=== PATIENT | female | born 1990 | race Caucasian/White ===

== ENCOUNTER 2024-06-12 20:11 | Emergency (ER) | payer OTHER, SELFPAY ==
[2024-06-12 20:11] VITALS: BP 106/77
[2024-06-12 20:29] LABS: % Basophils 0.6 % (0-2); % Eosinophils 2.3 % (0-6); % Immature Granulocytes 0.2 % (0-0.5); % Lymphocytes 31.9 % (20.5-51.1); % Monocytes 10.6 % (1.7-9.3); % Neutrophils 54.4 % (42.2-75.2); Absolute Eosinophils 0.1 10^3/uL (0-0.7); Absolute Lymphocytes 1.7 10^3/uL (1.2-3.4); Absolute Monocytes 0.6 10^3/uL (0.1-0.6); Absolute Neutrophils 2.9 10^3/uL (1.4-6.5); Hemoglobin 14.1 g/dL (12.0-16.0); Mean Corp Hgb Conc. 35.3 g/dL (33.0-37.0); Mean Corpuscular Hgb 31.1 pg (27.0-31.0); Mean Corpuscular Volume 88.3 fL (81.0-99.0); Mean Platelet Volume 9.2 fL (7.4-10.4); Nucleated Red Blood Cells % 0 %; Platelet Count 245 10^3/uL (130-400); Red Blood Cell Count 4.53 10^6/uL (4.20-5.40); Red Cell Dist. Width 12.2 % (11.5-14.5); White Blood Cell Count 5.3 10^3/uL (4.8-10.8)
[2024-06-12 20:35] LABS: HCG, Serum Qualitative Screen Negative
[2024-06-12 20:46] LABS: ALT (SGPT) 32 U/L (0-35); AST (SGOT) 27 U/L (14-36); Albumin 4.4 g/dl (3.5-5.0); Alkaline Phosphatase 71 U/L (38-126); Blood Urea Nitrogen 12 mg/dl (7-17); Carbon Dioxide 28 mmol/L (22-30); Chloride 100 mmol/L (98-107); Glucose 99 mg/dl (70-99); Potassium 3.9 mmol/L (3.5-5.1); Sodium 137 mmol/L (135-145); Total Bilirubin 0.7 mg/dl (0.2-1.3); Total Protein 7.2 g/dl (6.3-8.2); eGFR > 60.00
[2024-06-12 20:47] LABS: Lipase 121 U/L (23-300)
[2024-06-12 21:02] VITALS: BP 122/79
[2024-06-12 21:13] VITALS: BMI 27.3
--- NOTE | 2024-06-12 21:34 | ED.GENMED ---
History of Present Illness
<MARIA M Guillory - Last Filed: 06/13/24 00:11>
General
Chief Complaint: Abdominal Pain
Source: patient
Exam Limitations: none
Time Seen by Provider: 06/12/24 21:25
History of Present Illness
History of Present Illness:
This is a 34 year old female that comes in with c/o abd pain. States that this started on Tuesday. Yesterday and today she felt that the pain was getting worse. States that when she eats it increase the pain. States that it is all across the lower
abd. States that she took Ibuprofen at 12 noon but nothing since then. Denies any fever, chills, chest pain, SOB, nausea, vomiting, diarrhea, headache, dizziness, urinary burning
Past History
<MARIA M Guillory - Last Filed: 06/13/24 00:11>
Past History
ED Past Medical History: None
ED Past Surgical History: None
Social History
Tobacco: Non-smoker
Alcohol: Occasional
Personal: Single
Living: with family
Employment: Not employed
Family History
Family History: Other (Noncontributory)
Review of Systems
<MARIA M Guillory - Last Filed: 06/13/24 00:11>
Review of Systems
All Other Systems: ROS reviewed and negative except as documented in HPI and ROS
Constitutional: Reports no symptoms; Denies fever or chills
EENT: Reports no symptoms
Respiratory: Reports no symptoms; Denies cough or trouble breathing
Cardiac: Reports no symptoms; Denies chest pain
ABD/GI: Reports abdominal pain; Denies nausea, vomiting or diarrhea
: Reports no symptoms; Denies dysuria, frequency or urgency
Musculoskeletal: Reports no symptoms
Skin: Reports no symptoms
Neurological: Reports no symptoms; Denies dizzy or headache
Psychiatric: Reports no symptoms
Phy Exam
<MARIA M Guillory - Last Filed: 06/13/24 00:11>
General Physical Exam
General Presentation: well appearing and no apparent distress
General age: appears stated age
General Skin: warm and dry
General Habitus: normal
General Mental: alert
General Hydration: appears well hydrated
ENT Exam
ENT Exam: TM's normal, pharynx normal and neck supple
Eye Exam
Eye Exam: EOMI
Cardiovascular Exam
Cardiovascular Exam: regular rate/rhythm, no edema, no murmur and normal peripheral pulses
Pulmonary Exam
Pulmonary Exam: lungs clear, no respiratory distress, no rales, chest non tender, no crackles, no rhonchi, no wheezing and no cough
Gastrointestinal Exam
Gastrointestinal Exam: soft, no organomegaly, no pulsatile mass, non distended and tender (Lower abd tenderness with palpation, Hypoactive bowel sounds)
Musculoskeletal Exam
Musculoskeletal Exam: full ROM and no edema
Skin Exam
Skin Exam: normal color, warm/dry, no rash and no petechia
Psychiatric Exam
Psychiatric Exam: normal mood/affect
Course
<MARIA M Guillory - Last Filed: 06/13/24 00:11>
Orders/Labs/Results
Orders:
Orders
06/12/24 20:15
Test Result ONCE
06/12/24 20:20
Complete Blood Count/With Diff Urgent
Comprehensive Metabolic Panel Urgent
HCG, Serum Qualitative Screen Urgent
Comment: Notify provider if positive test present
Lipase Urgent
06/12/24 21:34
CT Abd/pelvis W Iv Cont Urgent
Comment:
Reason For Exam: lOWER ABD TENDERNESS
0.9% Sodium Chloride 500 ml [Nss] 500 ml IV BOLUS
06/12/24 21:35
Ketorolac [Toradol] 30 mg IV NOW STA
06/12/24 21:54
Urinalysis Reflex To Culture Urgent
Date Specimen was Collected: 06/12/24
Time Specimen was Collected: 21:50
Urine Microscopic Reflex Cult Urgent
Urine Culture Urgent
LÓPEZ Source: U
Specimen Description:
Date Specimen was Collected: 06/12/24
Time Specimen was Collected: 21:50
06/12/24 22:59
CefTRIAXone [Rocephin] 1,000 mg IV NOW STA
06/12/24 23:02
Urinalysis Reflex To Culture Urgent
Date Specimen was Collected: 06/12/24
Time Specimen was Collected: 22:54
Urine Microscopic Reflex Cult Urgent
Abnormal Lab Results
06/12/24 06/12/24 06/12/24
20:20 21:54 23:02
MCH 31.1 H pg
(27.0-31.0)
Monocytes % 10.6 H %
(1.7-9.3)
Ur Occult Blood Reflex 2+ A 1+ A
(Negative) (Negative)
Urine Urobilinogen 4+ A
(Neg - 1+)
Leukocyte Esterase Rfl 2+ A Trace A
(Negative) (Negative)
Urine RBC 3-6 A /HPF 7-10 A /HPF
(0-2) (0-2)
Urine WBC (Reflex) 50-60 A /HPF
(0-5)
Urine Bacteria (Reflex) Moderate A Few A
(Negative) (Negative)
06/12/24 20:20
06/12/24 20:20
Labs unremarkable. HCG negative. First urine contaminated. Second urine appears negative.
Vital Signs
Initial and Last Documented VS:
Initial Vital Signs
Temp Pulse Resp BP Pulse Ox
98.0 F 78 16 106/77 100
06/12/24 20:11 06/12/24 20:11 06/12/24 20:11 06/12/24 20:11 06/12/24 20:11
Last Documented Vital Signs
Temp Pulse Resp BP Pulse Ox
98.0 F 77 16 103/74 100
06/12/24 20:11 06/12/24 23:43 06/12/24 23:43 06/12/24 23:44 06/12/24 23:43
<Edgar Meneds MD - Last Filed: 06/12/24 22:51>
Orders/Labs/Results
Orders:
Orders
06/12/24 20:15
Test Result ONCE
06/12/24 20:20
Complete Blood Count/With Diff Urgent
Comprehensive Metabolic Panel Urgent
HCG, Serum Qualitative Screen Urgent
Comment: Notify provider if positive test present
Lipase Urgent
06/12/24 21:34
CT Abd/pelvis W Iv Cont Urgent
Comment:
Reason For Exam: lOWER ABD TENDERNESS
0.9% Sodium Chloride 500 ml [Nss] 500 ml IV BOLUS
06/12/24 21:35
Ketorolac [Toradol] 30 mg IV NOW STA
06/12/24 21:54
Urinalysis Reflex To Culture Urgent
Date Specimen was Collected: 06/12/24
Time Specimen was Collected: 21:50
Urine Microscopic Reflex Cult Urgent
Urine Culture Urgent
LÓPEZ Source: U
Specimen Description:
Date Specimen was Collected: 06/12/24
Time Specimen was Collected: 21:50
06/12/24 22:59
CefTRIAXone [Rocephin] 1,000 mg IV NOW STA
06/12/24 23:02
Urinalysis Reflex To Culture Urgent
Date Specimen was Collected: 06/12/24
Time Specimen was Collected: 22:54
Urine Microscopic Reflex Cult Urgent
Abnormal Lab Results
06/12/24 06/12/24 06/12/24
20:20 21:54 23:02
MCH 31.1 H pg
(27.0-31.0)
Monocytes % 10.6 H %
(1.7-9.3)
Ur Occult Blood Reflex 2+ A 1+ A
(Negative) (Negative)
Urine Urobilinogen 4+ A
(Neg - 1+)
Leukocyte Esterase Rfl 2+ A Trace A
(Negative) (Negative)
Urine RBC 3-6 A /HPF 7-10 A /HPF
(0-2) (0-2)
Urine WBC (Reflex) 50-60 A /HPF
(0-5)
Urine Bacteria (Reflex) Moderate A Few A
(Negative) (Negative)
06/12/24 20:20
06/12/24 20:20
Vital Signs
Initial and Last Documented VS:
Initial Vital Signs
Temp Pulse Resp BP Pulse Ox
98.0 F 78 16 106/77 100
06/12/24 20:11 06/12/24 20:11 06/12/24 20:11 06/12/24 20:11 06/12/24 20:11
Last Documented Vital Signs
Temp Pulse Resp BP Pulse Ox
98.0 F 77 16 103/74 100
06/12/24 20:11 06/12/24 23:43 06/12/24 23:43 06/12/24 23:44 06/12/24 23:43
<MARIA M Guillory - Last Filed: 06/13/24 00:11>
MDM/Problems Addressed
Differential Diagnosis Includes:
Diverticulitis, UTI, ovarian cyst
MDM/Problems Addressed:
This is a 34 year old female that comes in with c/o abd pain that started on Tuesday. States that it seems to have gotten worse over the past 2 days.
Will check labs and get CT scan and Urine.
Back into see patient. Explained that her blood work is normal. First urine is contaminated. Will have patient sent a second. CT scan shows gallstones and 1.7cm cyst on the right ovary. Explained that her lower abd pain is most likely due to the
UTI. Will treat with IV antibiotic here and sent a prescription to her pharmacy. Patient to follow up with the family doctor. Return with any concerns.
Back into see patient. Explained that the Second urine appears negative. However, patient was given IV antibiotics here and a prescription was sent to her pharmacy. Patient states that she will take the antibiotic at this time.
Chronic conditions affecting care:
NA
Acute Exacerbation and/or Progression of Chronic Illness:
NA
<MARIA M Guillory - Last Filed: 06/13/24 00:11>
*Radiology
Radiology exam reviewed: radiology read reviewed (CT-Cholelithiasis without evidence for acute cholecystitis or biliary obstruction. IUD in the endometrial canal. 1.7cm cyst in the right ovary. )
*Pulse Oximetry
Patient hypoxic: no
*EKG
Interpreted by ED Provider?: NA
Rate: EKG- N/A
*Engineering Faculty Interpretation
Rate: Engineering Faculty- N/A
*Critical Care Note
Total Time (30-74mins, 75-104mins- exclusive of procedures): Not Applicable
ED Attending Note
<MARIA M Guillory - Last Filed: 06/13/24 00:11>
-
Portions of this chart may have been created with voice recognition software.� Occasional wrong word or��sound alike� substitutions may have occurred due to the inherent limitations of voice recognition software.
<Edgar Mendes MD - Last Filed: 06/12/24 22:51>
ED Attending Note
Patient seen and examined by attending physician: Yes
ED Attending Note:
I have seen and evaluated the patient with a [id number] encounter. I have spoken to the advance practicer provider and involved in the medical history, the physical exam, medical decision making.
Evaluation and management service: agree unless noted differently below.
Results interpretation: agree unless noted differently below.
Focused HPI: 34-year-old female with no reported chronic medical issues presents to the emergency room for evaluation of abdominal pain. Patient reports onset of symptoms a few days ago and have been worsening particular for the past 2 days. She
reports diffuse pain worse across the lower abdomen. Somewhat worse with eating. Somewhat better after ibuprofen. She denies any associated nausea, vomiting, diarrhea, constipation. Denies any urinary symptoms. Denies any vaginal bleeding or
discharge. Last menstrual period was a few weeks ago and normal. She denies similar symptoms in the past. Denies any prior surgical history.
Physical exam: Awake alert no distress. Vital signs normal. Abdomen soft mild tender across lower abdomen. No CVA tenderness. Lungs clear. No cardiac rubs Or murmurs appreciated. No edema in extremities.
Medical Decision Makin-year-old female presents for evaluation of lower abdominal pain for the past few days. Vitals and exam as above. Labs sent off including a CBC and a CMP which were unremarkable. hCG negative. Urinalysis contaminated
makes it somewhat equivocal for infection in the absence of specific urinary symptoms; if no other cause identified would err towards treatment. CT pending. Continue to monitor.
Discharge Plan
Departure
Patient Disposition: Home (Routine Discharge)
Date of Disposition: 06/12/24
Time of Disposition: 23:57
Patient with high blood pressure during this ER visit?: No
Condition: Good
Covid-19: Not Applicable
Discharge Problem:
Lower abdominal pain
Instructions: Abdominal Pain
Prescriptions:
New
cefdinir 300 mg capsule
300 mg PO BID Qty: 10 0RF
No Action
Rx Tablet
1 tab PO DAILY
ibuprofen 600 MG tablet
600 mg PO Q6HPRN PRN (Reason: moderate pain/cramps) Qty: 0 0RF
oseltamivir 75 MG capsule
75 mg PO BID Qty: 9 0RF
cephalexin 500 mg capsule
500 mg PO Q6H Qty: 28 0RF
morphine 15 mg tablet
15 mg PO Q12H Qty: 3 0RF
morphine 15 mg tablet
15 mg PO Q8H PRN (Reason: Pain) Qty: 10 0RF
Referrals:
Geena Ponce MD [Family Provider] - Call in 1-3 days for appt
Activity Restrictions/Additional Instructions:
As discussed, your blood work is normal. Your CT was negative for any acute process. You do have a right ovary cyst and gallstone but no obvious gallbladder disease. Your First urine was contaminated. The second appears to be negative for infection.
However, a prescription was sent to your pharmacy earlier to treat a Urinary tract infection. You may want to hold of on taking the antibiotic at this time and follow up with the family doctor for further evaluation. IF YOU HAVE INCREASED OR
CHANGING PAIN, OR YOU HAVE ANY OTHER CONCERNS PLEASE RETURN TO THE EMERGENCY ROOM.
Interventions
Interventions:
*Risk Screen - Suicide Last Done: 06/12/24 20:11
*General Assessment Last Done: 06/12/24 20:11
*Neglect/Abuse Screening Last Done: 06/12/24 21:13
ED- Fall Risk Assessment Last Done: 06/12/24 21:13
*ED COVID-19 Vaccine History Last Done: 06/12/24 20:11
RQ-[id number]-[id number] Assessment Last Done: 06/12/24 21:13
Discharge Date and Time
Print Language: TAMAZIGHT
[2024-06-12] MEDS: TORADOL 30 MG IV (21:59)
[2024-06-12] MEDS: NSS 500 IV (21:59)
[2024-06-12 22:00] VITALS: BP 118/77
[2024-06-12 22:14] LABS: Urine Albumin Trace (Neg - Trace); Urine Bilirubin Negative (Negative); Urine Character Slightly Cloudy (Clear); Urine Color Yellow; Urine Glucose Negative (Negative); Urine Ketone Negative (Negative); Urine Leukocyte 2+ (Negative); Urine Nitrite Negative (Negative); Urine Occult Blood 2+ (Negative); Urine Urobilinogen 4+ (Neg - 1+)
[2024-06-12 22:33] LABS: Urine Bacteria Moderate (Negative); Urine Squamous Cell >30 /LPF (Few); Urine White Cell 50-60 /HPF (0-5)
[2024-06-12 22:41] VITALS: BP 114/71
[2024-06-12 23:13] LABS: Urine Albumin Negative (Neg - Trace); Urine Bilirubin Negative (Negative); Urine Character Clear (Clear); Urine Color Straw; Urine Glucose Negative (Negative); Urine Ketone Negative (Negative); Urine Leukocyte Trace (Negative); Urine Nitrite Negative (Negative); Urine Occult Blood 1+ (Negative); Urine Specific Gravity 1.005 (<1.030); Urine Urobilinogen Negative (Neg - 1+)
[2024-06-12 23:29] LABS: Urine Bacteria Few (Negative)
[2024-06-12] MEDS: ROCEPHIN 1000 MG IV (23:39)
[2024-06-12 23:44] VITALS: BP 103/74
== END 2024-06-13 00:31 | disposition home or self-care (01) ==
LOC: EMR 20:11
PROVIDERS: Clinical Nurse Specialist Family Health; Emergency Medicine; EMERGENCY PHYSICIAN Emergency Medicine; FAMILY PHYSICIAN Family Medicine
DX: R10.30 Lower abdominal pain, unspecified (principal); K80.20 Calculus of gallbladder without cholecystitis without obstruction; N83.201 Unspecified ovarian cyst, right side
CPT/HCPCS: 96374; 96375; 96361; 99284; 74177; 80053; 81003; 81015; 83690; 84703; 85025; 87086; Q9967

== ENCOUNTER 2024-10-16 10:38 | Emergency (ER) | payer OTHER, SELFPAY ==
[2024-10-16 10:52] VITALS: BP 160/99
--- NOTE | 2024-10-16 12:00 | ED.GENMED ---
History of Present Illness
General
Chief Complaint: Fall
Time Seen by Provider: 10/16/24 11:31
History of Present Illness
History of Present Illness:
34-year-old female presents to the emergency department for evaluation of bilateral flank pain after falling down her stairs this morning. She states that she fell down all 14 stairs striking her back multiple times along the way. She reports
bilateral flank pain and only minimal midline pain. Denies hematuria but does admit she is on her menstrual cycle so is unable to tell definitively. No nausea or vomiting. Denies head strike. Denies any lower extremity paresthesias or radicular
pain
Past History
Past History
ED Past Medical History: None
ED Past Surgical History: None
Social History
Tobacco: Non-smoker
Alcohol: Occasional
Personal: Single
Living: with family
Employment: Not employed
Family History
Family History: Other (Noncontributory)
Review of Systems
Review of Systems
Allergies reviewed?: Yes
All Other Systems: ROS reviewed and negative except as documented in HPI and ROS
Phy Exam
Physical Exam
Physical Exam:
GEN: Well appearing, NAD, WDWN
HEENT: Oral mucosa moist, no scleral icterus
Cardiac: Regular rate
Lung: No respiratory distress, no tachypnea
MSK: No gross deformity or injuries. Mild midline lumbar spine tenderness with no palpable deformity. Diffuse tenderness to bilateral costovertebral angles with no ecchymosis visualized.
Skin: Good color, no pallor or jaundice, no rashes
Neuro: AO x3, moves all extremities freely, lower extremity strength is 5 out of 5 in all melo
Psych: Calm, cooperative
Course
Orders/Labs/Results
Orders:
Orders
10/16/24 11:54
CT Abd/Pel (IV only)-DH only Urgent
Comment:
Reason For Exam: low back injury/flank pain bilat
Acetaminophen 1000MG/100Ml [Ofirmev] 1,000 mg in 100 ml IV ONCE
Acetaminophen IV Indication:: ED Narcotic Naive Pt-ONCE
10/16/24 11:59
Test Result ONCE
10/16/24 12:07
Complete Blood Count/With Diff Urgent
10/16/24 13:33
Comprehensive Metabolic Panel Urgent
HCG, Serum Qualitative Screen Urgent
Abnormal Lab Results
10/16/24 10/16/24
12:07 13:33
MCH 31.3 H pg
(27.0-31.0)
Lymphocytes % 20.4 L %
(20.5-51.1)
Chloride 109 H mmol/L
(98-107)
10/16/24 12:07
10/16/24 13:33
Vital Signs
Initial and Last Documented VS:
Initial Vital Signs
Temp Pulse Resp BP Pulse Ox
98.9 F 74 18 160/99 97
10/16/24 10:52 10/16/24 10:52 10/16/24 10:52 10/16/24 10:52 10/16/24 10:52
Last Documented Vital Signs
Temp Pulse Resp BP Pulse Ox
98.9 F 70 16 127/80 94
10/16/24 10:52 10/16/24 14:53 10/16/24 14:53 10/16/24 14:53 10/16/24 14:53
MDM/Problems Addressed
MDM/Problems Addressed:
Imaging was obtained due to the patient's complaint of flank pain with direct trauma after falling down a full flight of stairs as well as inability to determine if there was any hematuria. Imaging was reassuring against any fracture or viscus
injury. Discussed supportive care
*Critical Care Note
Total Time (30-74mins, 75-104mins- exclusive of procedures): Not Applicable
ED Attending Note
-
Portions of this chart may have been created with voice recognition software.� Occasional wrong word or��sound alike� substitutions may have occurred due to the inherent limitations of voice recognition software.
Discharge Plan
Departure
Patient Disposition: Home (Routine Discharge)
Date of Disposition: 10/16/24
Time of Disposition: 14:50
Patient with high blood pressure during this ER visit?: Yes
Discharge Problem:
Contusion of lower back
Instructions: Low back pain - ED discharge instructions
Prescriptions:
New
methocarbamol 750 mg tablet
750 - 1,500 mg PO Q8H PRN (Reason: pain) Qty: 20 0RF
diclofenac sodium 75 mg tablet,delayed release (DR/EC)
75 mg PO BID PRN (Reason: Pain) Qty: 20 0RF
No Action
Rx Tablet
1 tab PO DAILY
ibuprofen 600 MG tablet
600 mg PO Q6HPRN PRN (Reason: moderate pain/cramps) Qty: 0 0RF
oseltamivir 75 MG capsule
75 mg PO BID Qty: 9 0RF
cephalexin 500 mg capsule
500 mg PO Q6H Qty: 28 0RF
morphine 15 mg tablet
15 mg PO Q12H Qty: 3 0RF
morphine 15 mg tablet
15 mg PO Q8H PRN (Reason: Pain) Qty: 10 0RF
cefdinir 300 mg capsule
300 mg PO BID Qty: 10 0RF
Referrals:
Geena Ponce MD [Family Provider] -
Stand Alone Forms: Return to Work
Interventions
Interventions:
*Risk Screen - Suicide Last Done: 10/16/24 10:52
*General Assessment Last Done: 10/16/24 10:52
*Neglect/Abuse Screening Last Done: 10/16/24 10:52
*ED- Fall Risk Assessment Last Done: 10/16/24 11:39
*ED COVID-19 Vaccine History Last Done: 10/16/24 11:39
*Nursing Disposition Last Done: 10/16/24 14:59
ED-Musculoskeletal Assessment Last Done: 10/16/24 11:39
ED- Neurological Assessment Last Done: 10/16/24 11:39
ED-Skin Assessment Last Done: 10/16/24 11:39
Discharge Date and Time
Discharge Date/Time: 10/16/24 15:00
Print Language: NIGERIAN
[2024-10-16 12:15] LABS: % Basophils 0.6 % (0-2); % Eosinophils 1.4 % (0-6); % Immature Granulocytes 0.1 % (0-0.5); % Lymphocytes 20.4 % (20.5-51.1); % Monocytes 7.2 % (1.7-9.3); % Neutrophils 70.3 % (42.2-75.2); Absolute Eosinophils 0.1 10^3/uL (0-0.7); Absolute Lymphocytes 1.5 10^3/uL (1.2-3.4); Absolute Monocytes 0.5 10^3/uL (0.1-0.6); Hematocrit 38.5 % (37.0-47.0); Hemoglobin 13.5 g/dL (12.0-16.0); Mean Corp Hgb Conc. 35.1 g/dL (33.0-37.0); Mean Corpuscular Hgb 31.3 pg (27.0-31.0); Mean Corpuscular Volume 89.1 fL (81.0-99.0); Mean Platelet Volume 9.4 fL (7.4-10.4); Nucleated Red Blood Cells % 0 %; Platelet Count 215 10^3/uL (130-400); Red Blood Cell Count 4.32 10^6/uL (4.20-5.40); White Blood Cell Count 7.1 10^3/uL (4.8-10.8)
[2024-10-16] MEDS: OFIRMEV 100 IV (12:30)
[2024-10-16 13:49] LABS: HCG, Serum Qualitative Screen Negative
[2024-10-16 13:55] LABS: ALT (SGPT) 18 U/L (0-35); AST (SGOT) 22 U/L (14-36); Albumin 4.3 g/dl (3.5-5.0); Alkaline Phosphatase 69 U/L (38-126); Blood Urea Nitrogen 12 mg/dl (7-17); Calcium 9.3 mg/dl (8.4-10.2); Carbon Dioxide 25 mmol/L (22-30); Chloride 109 mmol/L (98-107); Glucose 95 mg/dl (70-99); Potassium 3.8 mmol/L (3.5-5.1); Sodium 140 mmol/L (135-145); Total Bilirubin 1.3 mg/dl (0.2-1.3); eGFR > 60.00
[2024-10-16 14:53] VITALS: BP 127/80
== END 2024-10-16 15:00 | disposition home or self-care (01) ==
LOC: EMR 10:38
PROVIDERS: Physician Assistant; EMERGENCY PHYSICIAN Emergency Medicine; FAMILY PHYSICIAN Family Medicine
DX: S30.0XXA Contusion of lower back and pelvis, initial encounter (principal); R10.9 Unspecified abdominal pain; W10.9XXA Fall (on) (from) unspecified stairs and steps, initial encounter
CPT/HCPCS: 96374; 99284; 74177; 80053; 84703; 85025; Q9967